=== PATIENT | male | born 1945 | race American Indian/Alaskan Native ===

== ENCOUNTER 2020-04-14 16:06 | Emergency (ER) | payer MEDICARE ==
--- NOTE | 2020-04-14 19:49 | Emergency Department Report ---
Blank Doc - Documentation Documentation: 74-year-old male that presents with left upper arm pain and is concerned about DVT. This initial assessment/diagnostic orders/clinical plan/treatment(s) is/are subject to change based on patient's health status, clinical progression and re- assessment by fellow clinical providers in the ED. Further treatment and workup at subsequent clinical providers discretion. Patient/guardians urged not to elope from the ED as their condition may be serious if not clinically assessed and managed. Initial orders include: 1- Patient sent to MAIN ED for further evaluation and treatment 2- US doppler
[2020-04-14 19:51] VITALS: BP 139/68
--- NOTE | 2020-04-14 21:49 | Emergency Department Report ---
HPI - General Chief Complaint: Extremity Problem,Nontraumatic Time Seen by Provider: 04/14/20 19:48 - HPI HPI: This is a 74-year-old male who presents to the emergency department with small bumps to the left upper arm that have developed over the past 2 to 3 days. He feels like it is growing in size and it is firm to touch. Most of the time he does not have any discomfort to this area except for when he flexes his bicep or moves his arm in a certain way. He has not taken anything for his symptoms prior to presentation. He has a past medical history of arthritis, coronary artery disease with [place], hypertension. He denies any restriction to range of motion to the left upper extremity. He denies any swelling to the arm itself. ED Past Medical Hx - Past Medical History Previous Medical History?: Yes Hx Hypertension: Yes Hx Heart Attack/AMI: Yes Hx Arthritis: Yes - Surgical History Past Surgical History?: Yes Hx Coronary Stent: Yes Additional Surgical History: neck surgery 2001. back surgery 2001 - Social History Smoking Status: Never Smoker Substance Use Type: None - Medications Home Medications: Home Medications Medication Instructions Recorded Confirmed Last Taken Type Methadone [Dolophine] 5 mg PO Q8HR PRN 08/15/13 09/20/13 09/20/13 History 5 mg Omeprazole [PriLOSEC] 20 mg PO QDAY 08/15/13 09/20/13 09/20/13 History 20 mg Pregabalin [Lyrica] 100 mg PO BID 08/15/13 09/20/13 09/20/13 History 100 mg guaiFENesin 400 mg PO TID PRN 08/15/13 09/20/13 Unknown History oxyCODONE [roxiCODONE] 5 mg PO TID 08/15/13 09/20/13 09/19/13 History 5 mg Aspirin [Aspirin BABY CHEW TAB] 81 mg PO DAILY 09/11/13 09/20/13 09/20/13 History 81 mg Atorvastatin [Lipitor] 40 mg PO DAILY 09/11/13 09/20/13 09/20/13 History 40 mg Lisinopril [Zestril] 2.5 mg PO DAILY 09/11/13 09/20/13 09/20/13 History Metoprolol [Lopressor TAB] 12.5 mg PO BID 0109/20/13 09/20/13 History 25 mg Nitroglycerin [Nitrostat] 0.4 mg SL Q5M 09/20/13 09/20/13 09/20/13 21:00 History 1 dose Ticagrelor [Brilinta] 90 mg PO BID 09/20/13 09/20/13 09/20/13 History ED Review of Systems ROS: Stated complaint: LEFT ARM PAIN Other details as noted in HPI Comment: All other systems reviewed and negative Constitutional: denies: chills, fever Respiratory: denies: shortness of breath Cardiovascular: denies: chest pain Skin: lesions. denies: change in color, pruritus Neurological: denies: numbness, paresthesias Physical Exam - Physical Exam Vital Signs: Vital Signs 04/14/20 19:48 Temperature 98 F Pulse Rate 74 Respiratory 20 Rate Blood Pressure 139/68 O2 Sat by Pulse 99 Oximetry Physical Exam: GENERAL: The patient is well-developed well-nourished. HENT: Normocephalic. Atraumatic. Patient has moist mucous membranes. EYES: Extraocular motions are intact. NECK: Supple. Trachea is midline. CHEST/LUNGS: Clear to auscultation. There is no respiratory distress noted. HEART/CARDIOVASCULAR: Regular. There is no tachycardia. ABDOMEN: There is no abdominal distention. SKIN: Skin is warm and dry. Patient has some areas of firm, ropey lesions to the left upper arm to the mid bicep and mid tricep. There is no overlying skin color change. NEURO: The patient is awake, alert, and oriented. The patient is cooperative. The patient has no focal neurologic deficits. Normal speech. MUSCULOSKELETAL: There is no tenderness to palpation to the affected left upper extremity. Radial pulse +2/4 and capillary refill less than 2 seconds to the distal left upper extremity. ED Course Vital Signs 04/14/20 19:48 Temperature 98 F Pulse Rate 74 Respiratory 20 Rate Blood Pressure 139/68 O2 Sat by Pulse 99 Oximetry ED Medical Decision Making - Medical Decision Making This patient presents with a 2 to 3-day history of some "bumps" to the left upper extremity. It is not tender to palpation. It feels firm and ropey, similar to a superficial thrombophlebitis or calcified varicosities. There is no overlying skin color change. He has full range of motion of the left upper extremity and is neurovascularly intact. His vital signs have been reassuring including being afebrile. The patient refused a humerus x-ray. I am unable to get venous Doppler ultrasound at this time, but the patient has been given an order to have this done in the morning. If positive for a DVT the patient will be re-directed to the emergency department. If negative, he has been instructed to follow-up with his primary care physician or a caramel candy maker helper. He does not appear to have any emergent medical condition or require admission at this time. Critical Care Time: No Critical care attestation.: If time is entered above; I have spent that time in minutes in the direct care of this critically ill patient, excluding procedure time. ED Disposition Clinical Impression: Skin lesion of left arm Disposition: DC-01 TO HOME OR SELFCARE Is pt being admited?: No Condition: Stable Additional Instructions: Please call the number on your discharge paperwork to schedule your outpatient venous Doppler ultrasound of the left arm. If the test is positive for a blood clot you will be redirected to the emergency department. If negative, please follow-up with your primary care physician or a caramel candy maker helper. Return to the emergency department with any worsening of your symptoms or with any acute distress. Referrals: PRIMARY MD NELLY [Primary Care Provider] - 2-3 Days Time of Disposition: 22:07
== END 2020-04-14 22:45 | disposition home or self-care (01) ==
LOC: ED 16:06
DX: M79.602 Pain in left arm (principal); I25.2 Old myocardial infarction; I10 Essential (primary) hypertension; M19.91 Primary osteoarthritis, unspecified site; Z98.890 Other specified postprocedural states; Z79.899 Other long term (current) drug therapy
CPT/HCPCS: 99282

== ENCOUNTER 2020-04-15 12:38 | Outpatient (CLI) | payer MEDICARE ==
--- NOTE | 2020-04-15 15:16 | Vascular Lab Report ---
LEFT UPPER EXTREMITY VENOUS DOPPLER ULTRASOUND HISTORY: Left arm pain, lesion COMPARISON: None. TECHNIQUE: Grayscale, color and spectral Doppler imaging of the venous system of the left upper extre mity was performed. FINDINGS: Internal Jugular Vein: Normal grayscale appearance and flow. Subclavian Vein: Normal grayscale appearance and flow. Axillary Vein: Normal venous flow, compressibility and augmentation. Brachial vein: Normal venous flow, compressibility and augmentation. Radial vein: Normal venous flow, compressibility and augmentation. Ulnar vein: Normal venous flow, compressibility and augmentation. Additional Findings: 0.6 x 0.2 cm ovoid lesion is identified near the left antecubital fossa consiste nt with a small lymph node. IMPRESSION: 1. No sonographic evidence of deep venous thrombosis in the left upper extremity. Signer Name: Serafin Goncalves Jr, MD Signed: 04/15/2020 3:11 PM Workstation Name: [id number]
== END 2020-04-15 12:39 | disposition home or self-care (01) ==
LOC: VAS 12:38
PROVIDERS: ATTEND Emergency Medicine
DX: M79.662 Pain in left lower leg (principal)

== ENCOUNTER 2020-12-08 18:22 | Observation (INO) | payer MEDICARE ==
--- NOTE | 2020-12-08 21:32 | Emergency Department Report ---
ED Chest Pain HPI - General Chief Complaint: Chest Pain Stated Complaint: CHEST PAIN Time Seen by Provider: 12/08/20 21:13 Source: patient Mode of arrival: Ambulatory Limitations: No Limitations - History of Present Illness Initial Comments: This is a 74-year-old -[place] male presents to the emergency department with complaint of an episode of dizziness/lightheadedness, and an episode of left-sided chest pain. The patient says that 2 days ago he was shopping at [employer] when suddenly he felt dizzy as if he was going to pass out. He says that it also occurred when he was getting up from sitting down or exerting himself. Earlier today the patient says that he reached for something and suddenly had sharp left-sided chest pains. It lasted for about an hour or so until he took a sublingual nitroglycerin. Now, at the time of my examination, the patient denies any symptoms or complaints. He denies any fever, shortness of breath, lower extremity swelling, nausea, vomiting, back pain or diaphoresis. He is a tobacco smoker but denies any illicit drug use. The patient has a past medical history of hypertension and coronary artery disease with previous NM and coronary stent in place. His manager dental is Dr. Lang. No recent travel or sick contacts at home. - Related Data Home Medications Medication Instructions Recorded Confirmed Last Taken Methadone [Dolophine] 5 mg PO Q8HR PRN 08/15/13 09/20/13 09/20/13 5 mg Omeprazole [PriLOSEC] 20 mg PO QDAY 08/15/13 09/20/13 09/20/13 20 mg Pregabalin [Lyrica] 100 mg PO BID 08/15/13 09/20/13 09/20/13 100 mg guaiFENesin 400 mg PO TID PRN 08/15/13 09/20/13 Unknown oxyCODONE [roxiCODONE] 5 mg PO TID 08/15/13 09/20/13 09/19/13 5 mg Aspirin [Aspirin BABY CHEW TAB] 81 mg PO DAILY 09/11/13 09/20/13 09/20/13 81 mg Atorvastatin [Lipitor] 40 mg PO DAILY 09/11/13 09/20/13 09/20/13 40 mg Lisinopril [Zestril] 2.5 mg PO DAILY 09/11/13 09/20/13 09/20/13 Metoprolol [Lopressor TAB] 12.5 mg PO BID 09/11/13 09/20/13 09/20/13 25 mg Nitroglycerin [Nitrostat] 0.4 mg SL Q5M 09/20/13 09/20/13 09/20/13 21:00 1 dose Ticagrelor [Brilinta] 90 mg PO BID 09/20/13 09/20/13 09/20/13 Allergies Allergy/AdvReac Type Severity Reaction Status Date / Time No Known Allergies Allergy Verified 12/08/20 18:37 Heart Score - HEART Score History: Slightly suspicious EKG: Non-specific Age: > 65 Risk factors: > 3 risk factors or hx of atherosclerotic disease Troponin: < normal limit HEART Score: 5 - EKG Read Time Time EKG Completed: 18:38 EKG Read Time: 18:42 - Critical Actions Critical Actions: 4-6 pts:12-16.6% risk of adverse cardiac event. Should be admitted ED Review of Systems ROS: Stated complaint: CHEST PAIN Other details as noted in HPI Comment: All other systems reviewed and negative Constitutional: denies: chills, fever Eyes: denies: eye pain, vision change ENT: denies: ear pain, throat pain Respiratory: denies: cough, shortness of breath Cardiovascular: chest pain. denies: palpitations Gastrointestinal: denies: abdominal pain, vomiting Genitourinary: denies: dysuria, discharge Musculoskeletal: denies: back pain, arthralgia Skin: denies: rash, lesions Neurological: other (dizzy/lighthead). denies: headache ED Past Medical Hx - Past Medical History Hx Hypertension: Yes Hx Heart Attack/AMI: Yes Hx Arthritis: Yes - Surgical History Hx Coronary Stent: Yes Additional Surgical History: neck surgery 2001. back surgery 2001 - Social History Smoking Status: Current Every Day Smoker Substance Use Type: None - Medications Home Medications: Home Medications Medication Instructions Recorded Confirmed Last Taken Type Methadone [Dolophine] 5 mg PO Q8HR PRN 08/15/13 09/20/13 09/20/13 History 5 mg Omeprazole [PriLOSEC] 20 mg PO QDAY 08/15/13 09/20/13 09/20/13 History 20 mg Pregabalin [Lyrica] 100 mg PO BID 08/15/13 09/20/13 09/20/13 History 100 mg guaiFENesin 400 mg PO TID PRN 08/15/13 09/20/13 Unknown History oxyCODONE [roxiCODONE] 5 mg PO TID 08/15/13 09/20/13 09/19/13 History 5 mg Aspirin [Aspirin BABY CHEW TAB] 81 mg PO DAILY 09/11/13 09/20/13 09/20/13 History 81 mg Atorvastatin [Lipitor] 40 mg PO DAILY 09/11/13 09/20/13 09/20/13 History 40 mg Lisinopril [Zestril] 2.5 mg PO DAILY 09/11/13 09/20/13 09/20/13 History Metoprolol [Lopressor TAB] 12.5 mg PO BID 09/11/13 09/20/13 09/20/13 History 25 mg Nitroglycerin [Nitrostat] 0.4 mg SL Q5M 09/20/13 09/20/13 09/20/13 21:00 History 1 dose Ticagrelor [Brilinta] 90 mg PO BID 09/20/13 09/20/13 09/20/13 History ED Physical Exam - General Limitations: No Limitations - Other Other exam information: GENERAL: The patient is well-developed well-nourished. HENT: Normocephalic. Atraumatic. Patient has moist mucous membranes. EYES: Extraocular motions are intact. NECK: Supple. Trachea is midline. CHEST/LUNGS: Clear to auscultation. There is no respiratory distress noted. There is no reproducible chest pain to palpation of the chest wall. No crepitus or deformity. HEART/CARDIOVASCULAR: Regular. There is no tachycardia. There is no murmur. ABDOMEN: Abdomen is soft, nontender. Patient has normal bowel sounds. There is no abdominal distention. SKIN: Skin is warm and dry. NEURO: The patient is awake, alert, and oriented. The patient is cooperative. The patient has no focal neurologic deficits. Normal speech. No facial asymmetry. Cranial nerves II through XII grossly intact. No pronator drift or dysmetria. MUSCULOSKELETAL: There is no tenderness or deformity. There is no limitation range of motion. ED Course Vital Signs 12/08/20 12/08/20 12/08/20 18:31 21:31 21:32 Temperature 98.2 F Pulse Rate 83 72 76 Respiratory 16 20 16 Rate Blood Pressure 135/67 130/64 130/64 O2 Sat by Pulse 100 100 100 Oximetry 12/08/20 12/08/20 12/08/20 21:34 21:36 21:38 Temperature Pulse Rate 72 74 78 Respiratory 22 14 16 Rate Blood Pressure 130/64 130/64 130/64 O2 Sat by Pulse 98 100 100 Oximetry 12/08/20 12/08/20 12/08/20 21:40 21:42 21:44 Temperature Pulse Rate 80 73 75 Respiratory 25 H 22 19 Rate Blood Pressure 130/64 130/64 130/64 O2 Sat by Pulse 99 98 100 Oximetry 12/08/20 12/08/20 12/08/20 21:46 21:47 21:48 Temperature Pulse Rate 82 72 66 Respiratory 18 20 18 Rate Blood Pressure 130/64 104/53 104/53 O2 Sat by Pulse 99 100 99 Oximetry 12/08/20 12/08/20 12/08/20 21:50 21:52 21:54 Temperature Pulse Rate 73 67 70 Respiratory 18 18 18 Rate Blood Pressure 104/53 104/53 104/53 O2 Sat by Pulse 99 99 98 Oximetry 12/08/20 12/08/20 12/08/20 21:56 21:58 22:00 Temperature Pulse Rate 71 76 68 Respiratory 16 16 15 Rate Blood Pressure 104/53 O2 Sat by Pulse 99 98 98 Oximetry 12/08/20 12/08/20 12/08/20 22:01 22:02 22:04 Temperature Pulse Rate 76 70 72 Respiratory 15 15 18 Rate Blood Pressure 109/50 109/50 109/50 O2 Sat by Pulse 98 98 99 Oximetry 12/08/20 12/08/20 12/08/20 22:06 22:08 22:10 Temperature Pulse Rate 67 69 68 Respiratory 16 17 15 Rate Blood Pressure 104/53 104/53 104/53 O2 Sat by Pulse 99 98 98 Oximetry 12/08/20 12/08/20 12/08/20 22:12 22:14 22:16 Temperature Pulse Rate 68 71 70 Respiratory 14 15 16 Rate Blood Pressure 104/53 104/53 121/53 O2 Sat by Pulse 98 98 98 Oximetry 12/08/20 12/08/20 12/08/20 22:17 22:18 22:20 Temperature Pulse Rate 69 68 67 Respiratory 13 14 13 Rate Blood Pressure 121/53 121/53 121/53 O2 Sat by Pulse 99 98 99 Oximetry 12/08/20 12/08/20 12/08/20 22:22 22:24 22:26 Temperature Pulse Rate 70 68 65 Respiratory 14 13 16 Rate Blood Pressure 121/53 121/53 121/53 O2 Sat by Pulse 98 98 96 Oximetry 12/08/20 12/08/20 12/08/20 22:28 22:30 22:31 Temperature Pulse Rate 67 69 64 Respiratory 15 14 16 Rate Blood Pressure 121/53 121/53 120/56 O2 Sat by Pulse 98 96 99 Oximetry 12/08/20 12/08/20 12/08/20 22:32 22:34 22:36 Temperature Pulse Rate 67 74 69 Respiratory 14 17 16 Rate Blood Pressure 120/56 120/56 120/56 O2 Sat by Pulse 99 99 99 Oximetry 12/08/20 12/08/20 12/08/20 22:38 22:40 22:42 Temperature Pulse Rate 68 68 65 Respiratory 16 17 16 Rate Blood Pressure 120/56 120/56 120/56 O2 Sat by Pulse 98 97 98 Oximetry 12/08/20 12/08/20 12/08/20 22:44 22:46 22:47 Temperature Pulse Rate 67 68 69 Respiratory 14 22 18 Rate Blood Pressure 120/56 109/45 109/45 O2 Sat by Pulse 98 99 98 Oximetry 12/08/20 12/08/20 12/08/20 22:48 22:50 22:51 Temperature Pulse Rate 68 66 66 Respiratory 16 18 17 Rate Blood Pressure 109/45 109/45 109/45 O2 Sat by Pulse 98 97 97 Oximetry 12/08/20 12/08/20 12/08/20 22:52 22:54 22:56 Temperature Pulse Rate 68 64 64 Respiratory 18 22 19 Rate Blood Pressure 109/45 109/45 109/45 O2 Sat by Pulse 98 98 98 Oximetry 12/08/20 12/08/20 12/08/20 22:58 23:00 23:02 Temperature Pulse Rate 66 65 68 Respiratory 28 H 24 17 Rate Blood Pressure 109/45 109/45 117/46 O2 Sat by Pulse 98 98 97 Oximetry 12/08/20 12/08/20 12/08/20 23:04 23:06 23:08 Temperature Pulse Rate 66 66 66 Respiratory 19 19 18 Rate Blood Pressure 117/46 117/46 109/45 O2 Sat by Pulse 98 97 97 Oximetry 12/08/20 12/08/20 12/08/20 23:10 23:12 23:14 Temperature Pulse Rate 65 63 61 Respiratory 15 15 15 Rate Blood Pressure 109/45 109/45 109/45 O2 Sat by Pulse 97 97 97 Oximetry 12/08/20 12/08/20 12/08/20 23:16 23:17 23:18 Temperature Pulse Rate 63 64 64 Respiratory 15 17 15 Rate Blood Pressure 128/47 128/47 128/47 O2 Sat by Pulse 98 97 97 Oximetry 12/08/20 12/08/20 12/08/20 23:20 23:22 23:24 Temperature Pulse Rate 63 64 62 Respiratory 15 16 15 Rate Blood Pressure 128/47 128/47 128/47 O2 Sat by Pulse 97 97 97 Oximetry 12/08/20 12/08/20 12/08/20 23:26 23:28 23:30 Temperature Pulse Rate 61 63 64 Respiratory 15 15 16 Rate Blood Pressure 128/47 128/47 128/47 O2 Sat by Pulse 97 97 97 Oximetry 12/08/20 12/08/20 12/08/20 23:32 23:34 23:36 Temperature Pulse Rate 60 62 61 Respiratory 15 15 15 Rate Blood Pressure 107/42 107/42 107/42 O2 Sat by Pulse 97 97 97 Oximetry FRANSICO score - Fransico Score Age > 65: (1) Yes Aspirin use within the Past 7 Days: (0) No 3 or more CAD Risk Factors: (1) Yes 2 or more Angina events in past 24 hrs: (1) Yes Known CAD with more than 50% Stenosis: (1) Yes Elevated Cardiac Markers: (0) No ST Deviation Greater than 0.5mm: (0) No FRANSICO Score: 4 ED Medical Decision Making - Lab Data Result diagrams: 12/08/20 21:31 12/08/20 23:01 - EKG Data -: EKG Interpreted by Me EKG shows normal: sinus rhythm, axis, intervals, QRS complexes (Q waves to the septal and anterior leads, LVH), ST-T waves Rate: normal - EKG Data When compared to previous EKG there are: previous EKG unavailable ("Unable to cache image") Interpretation: other (Sinus rhythm at 81 bpm, normal axis, normal intervals, Q waves to the anteroseptal leads, LVH. No ST elevation NM.) - Radiology Data Radiology results: image reviewed interpreted by me: Chest x-ray shows hyperinflation of the lungs. No obvious pneumonia, pleural effusions or pneumothorax. - Medical Decision Making This patient presents with some nonspecific dizziness/lightheadedness, and then the next day had left-sided chest pains. EKG does not have any morphology consistent with ST elevation myocardial infarction. Chest x-ray appears more consistent with COPD and does not show any obvious pneumonia, pleural effusions or any pneumothorax. Labs have been mostly unremarkable thus far including CBC, metabolic panel, negative troponin and a negative D-dimer. However the patient has a moderate heart and FRANSICO score. For this reason he will be admitted to the hospital for further evaluation and treatment and was accepted for admission by the hospitalist, Dr. Lee. Critical Care Time: No Critical care attestation.: If time is entered above; I have spent that time in minutes in the direct care of this critically ill patient, excluding procedure time. ED Disposition Clinical Impression: Acute chest pain, History of coronary artery disease, Tobacco use, Chest pain, rule out acute myocardial infarction Disposition: 09 OP ADMIT IP TO THIS HOSP Is pt being admited?: Yes Condition: Fair Time of Disposition: 22:49
[2020-12-08 21:44] LABS: Basophils # (Auto) 0.1 K/mm3 (0.0-0.1); Basophils % (Auto) 1.2 % (0.0-1.8); Eosinophils # (Auto) 0.3 K/mm3 (0.0-0.4); Eosinophils % (Auto) 7.5 % (0.0-4.3); Hematocrit 45.5 % (35.5-45.6); Hemoglobin 15.4 gm/dl (11.8-15.2); Lymphocytes % (Auto) 43.9 % (13.4-35.0); Mean Corpuscular HGB Conc 34 % (32-34); Mean Corpuscular Volume 92 fl (84-94); Monocytes # (Auto) 0.4 K/mm3 (0.0-0.8); Monocytes % (Auto) 8.9 % (0.0-7.3); Platelet Count 201 K/mm3 (140-440); Red Blood Count 4.94 M/mm3 (3.65-5.03); Red Cell Distribution Width 14.7 % (13.2-15.2)
[2020-12-08 21:53] LABS: INR 0.92 (0.87-1.13)
--- NOTE | 2020-12-08 21:59 | XRay Report ---
CHEST 1 VIEW 12/08/2020 9:27 PM INDICATION / CLINICAL INFORMATION: CP. COMPARISON: None available. FINDINGS: SUPPORT DEVICES: None. HEART / MEDIASTINUM: No significant abnormality. LUNGS / PLEURA: Bilateral chronic appearing interstitial changes with pulmonary hyperexpansion and ap ical predominant emphysema. No pneumothorax. ADDITIONAL FINDINGS: No significant additional findings. IMPRESSION: 1. Features compatible with COPD. No acute cardiopulmonary abnormality. Signer Name: Froilan Torres MD Signed: 12/08/2020 9:55 PM Workstation Name: [id number]
[2020-12-08 22:08] LABS: Alanine Aminotransferase 10 units/L (7-56); Albumin 3.9 g/dL (3.9-5); BUN/Creatinine Ratio 11; Blood Urea Nitrogen 13 mg/dL (9-20); Calcium 9.3 mg/dL (8.4-10.2); Hemolysis Index 33
[2020-12-08] MEDS ORDERED: ACETAMINOPHEN 325 MG TAB PO PRN ×2 (22:52)
[2020-12-08] MEDS ORDERED: traMADol 50 MG TAB PO PRN (22:52)
[2020-12-08] MEDS ORDERED: MAGNESIUM HYDROXIDE (MOM) ORAL LIQD UDC PO PRN (22:52)
[2020-12-08] MEDS ORDERED: NITROGLYCERIN 0.4 MG TAB SUBL SL PRN (22:52)
[2020-12-08] MEDS ORDERED: ONDANSETRON 4 MG/2 ML INJ IV PRN (22:52)
[2020-12-08] MEDS ORDERED: MORPHINE 2 MG/1 ML INJ IV PRN (22:52)
--- NOTE | 2020-12-08 23:02 | History and Physical Report ---
History of Present Illness Date of examination: 12/08/20 Date of admission: 12/08/2020 Chief complaint: Chest Pain History of present illness: 44-year-old -[place] male with known history of coronary artery disease and hypertension presenting to the emergency room today complaining of chest pain and lightheadedness. Lightheadedness was said to have started about 2 days ago when he suddenly felt dizzy when bending down. He suddenly started having left-sided chest pain today of minimal exertion and also felt lightheaded. Symptoms were said to have lasted for about an hour after which he took some sublingual nitroglycerin. There is no radiation of his chest pain, he denies any headache, no nausea vomiting, no fever or chills, no diaphoresis. Patient indicates that he has been compliant with his medications and denies any illicit drug use. However he continues to smoke tobacco on a daily basis. Patient follows up with Dr. Lang but states that he missed his recent appointment. Work-up in the emergency room today including EKG, chest x-ray and troponin were unremarkable. Patient is being admitted for chest pain evaluation. Past History Past Medical History: arthritis, CAD, hypertension, hyperlipidemia Past Surgical History: Other (Neck and Back pain in 2001) Social history: smoking (Current daily smoker) Family history: no significant family history Medications and Allergies Allergies Allergy/AdvReac Type Severity Reaction Status Date / Time No Known Allergies Allergy Verified 12/08/20 18:37 Home Medications Medication Instructions Recorded Confirmed Last Taken Type Methadone [Dolophine] 5 mg PO Q8HR PRN 08/15/13 09/20/13 09/20/13 History 5 mg Omeprazole [PriLOSEC] 20 mg PO QDAY 08/15/13 09/20/13 09/20/13 History 20 mg Pregabalin [Lyrica] 100 mg PO BID 08/15/13 09/20/13 09/20/13 History 100 mg guaiFENesin 400 mg PO TID PRN 08/15/13 09/20/13 Unknown History oxyCODONE [roxiCODONE] 5 mg PO TID 08/15/13 09/20/13 09/19/13 History 5 mg Aspirin [Aspirin BABY CHEW TAB] 81 mg PO DAILY 09/11/13 09/20/13 09/20/13 History 81 mg Atorvastatin [Lipitor] 40 mg PO DAILY 09/11/13 09/20/13 09/20/13 History 40 mg Lisinopril [Zestril] 2.5 mg PO DAILY 09/11/13 09/20/13 09/20/13 History Metoprolol [Lopressor TAB] 12.5 mg PO BID 09/11/13 09/20/13 09/20/13 History 25 mg Nitroglycerin [Nitrostat] 0.4 mg SL Q5M 09/20/13 09/20/13 09/20/13 21:00 History 1 dose Ticagrelor [Brilinta] 90 mg PO BID 09/20/13 09/20/13 09/20/13 History Active Meds: Active Medications Acetaminophen (Acetaminophen 325 Mg Tab) 650 mg PO Q4H PRN PRN Reason: Pain MILD(1-3)/Fever >100.5/SANDOVAL Acetaminophen (Acetaminophen 325 Mg Tab) 650 mg PO Q6H PRN PRN Reason: Pain, Mild (1-3) Aspirin (Aspirin Ec 325 Mg Tab) 325 mg PO QDAY [facility] Heparin Sodium (Porcine) (Heparin 5,000 Unit/1 Ml Vial) 5,000 unit SUB-Q Q8HR B[facility] Magnesium Hydroxide (Magnesium Hydroxide (Mom) Oral Liqd Udc) 30 ml PO Q4H PRN PRN Reason: Constipation Morphine Sulfate (Morphine 4 Mg/1 Ml Inj) 2 mg IV Q5MIN PRN PRN Reason: Chest Pain Nitroglycerin (Nitroglycerin 0.4 Mg Tab Subl) 0.4 mg SL Q5M PRN PRN Reason: Chest Pain Ondansetron HCl (Ondansetron 4 Mg/2 Ml Inj) 4 mg IV Q8H PRN PRN Reason: Nausea And Vomiting Sodium Chloride (Sodium Chloride 0.9% 10 Ml Flush Syringe) 10 ml IV BID BULL Sodium Chloride (Sodium Chloride 0.9% 10 Ml Flush Syringe) 10 ml IV PRN PRN PRN Reason: LINE FLUSH Sodium Chloride (Sodium Chloride 0.9% 10 Ml Flush Syringe) 10 ml IV PRN PRN PRN Reason: LINE FLUSH Tramadol HCl (Tramadol 50 Mg Tab) 50 mg PO Q6H PRN PRN Reason: Pain, Moderate (4-6) Review of Systems Constitutional: no fever, no chills, no fatigue Ears, nose, mouth and throat: no nasal congestion, no sore throat Cardiovascular: chest pain, no palpitations Respiratory: no cough, no shortness of breath Gastrointestinal: no abdominal pain, no nausea, no vomiting, no diarrhea Genitourinary Male: no dysuria, no hematuria, no flank pain, no nocturia Musculoskeletal: no neck pain, no low back pain Integumentary: no rash, no pruritis Neurological: no headaches, no confusion Psychiatric: no anxiety, no depression Endocrine: no polyphagia, no polydipsia, no polyuria, no nocturia Exam - Constitutional Vitals: Temp Pulse Resp BP Pulse Ox 98.2 F 69 16 120/56 99 12/08/20 18:31 12/08/20 22:36 12/08/20 22:36 12/08/20 22:36 12/08/20 22:36 General appearance: Present: no acute distress, well-nourished - EENT Eyes: Present: PERRL, EOM intact. Absent: scleral icterus ENT: hearing intact, clear oral mucosa, dentition normal - Neck Neck: Present: supple, normal ROM - Respiratory Respiratory effort: normal Respiratory: bilateral: CTA - Cardiovascular Rhythm: regular Heart Sounds: Present: S1 & S2. Absent: gallop, systolic murmur, diastolic murmur, rub, click - Extremities Extremities: no ischemia, pulses intact, pulses symmetrical, No edema, Full ROM Peripheral Pulses: within normal limits - Abdominal General gastrointestinal: Present: soft, non-tender, non-distended, normal bowel sounds. Absent: mass - Integumentary Integumentary: Present: clear, warm, dry. Absent: rash - Musculoskeletal Musculoskeletal: strength equal bilaterally - Psychiatric Psychiatric: appropriate mood/affect, intact judgment & insight, memory intact, cooperative - Neurologic Neurologic: CNII-XII intact, no focal deficits, moves all extremities HEART Score - HEART Score History: Slightly suspicious EKG: Non-specific Age: > 65 Risk factors: > 3 risk factors or hx of atherosclerotic disease Troponin: Troponin T < 0.010 ng/mL (0.00-0.029) 12/08/20 21:31 Troponin: < normal limit HEART Score: 5 - Critical Actions Critical Actions: 4-6 pts:12-16.6% risk of adverse cardiac event. Should be admitted Results - Labs CBC & Chem 7: 12/08/20 21:31 12/08/20 23:01 Labs: Abnormal lab results 12/08/20 12/08/20 Range/Units 21:31 21:31 Hgb 15.4 H (11.8-15.2) gm/dl Lymph % (Auto) 43.9 H (13.4-35.0) % Kendall % (Auto) 8.9 H (0.0-7.3) % Eos % (Auto) 7.5 H (0.0-4.3) % Seg Neutrophils % 38.5 L (40.0-70.0) % Sodium 136 L (137-145) mmol/L Glucose 106 H (75-100) mg/dL Assessment and Plan - Patient Problems (1) Chest pain, rule out acute myocardial infarction Current Visit: Yes Status: Acute Plan to address problem: Patient admitted and placed on telemetry. We will check serial cardiac enzymes. Patient started on daily aspirin, Sublingual nitroglycerin and IV morphine as needed for chest pain. Consult placed to cardiology for evaluation. (2) History of coronary artery disease Current Visit: Yes Status: Acute Plan to address problem: Patient has known history of [place] in the past with stent placement He follows up with Dr. Lang. Will await evaluation and recommendations from cardiology. (3) Tobacco use Current Visit: Yes Status: Acute Plan to address problem: Patient counseled on quitting tobacco abuse. We offer nicotine patch as needed. (4) Hypertension Current Visit: Yes Status: Acute Plan to address problem: Blood pressure stable. Will monitor vital signs closely. Continue on routine medications . (5) DVT prophylaxis Current Visit: Yes Status: Acute Plan to address problem: Patient placed on subcutaneous heparin. (6) Full code status Current Visit: Yes Status: Acute Plan to address problem: Patient is a full code.
[2020-12-09 00:14] LABS: BUN/Creatinine Ratio 12; Blood Urea Nitrogen 13 mg/dL (9-20); Calcium 9.2 mg/dL (8.4-10.2); Hemolysis Index 13
[2020-12-09] MEDS ORDERED: METHADONE 5 MG TAB PO PRN (00:37)
[2020-12-09 03:22] LABS: Hematocrit 41.5 % (35.5-45.6); Mean Corpuscular HGB Conc 34 % (32-34); Mean Corpuscular Volume 92 fl (84-94); Platelet Count 188 K/mm3 (140-440); Red Blood Count 4.51 M/mm3 (3.65-5.03); Red Cell Distribution Width 14.3 % (13.2-15.2)
[2020-12-09 03:24] LABS: BUN/Creatinine Ratio 11; Blood Urea Nitrogen 13 mg/dL (9-20); Calcium 9.1 mg/dL (8.4-10.2); Hemolysis Index 14
[2020-12-09 04:38] LABS: Chol/HDL Ratio 2.76 %
[2020-12-09] MEDS ORDERED: HEPARIN 5,000 UNIT/1 ML VIAL SUB-Q SCH (06:00)
[2020-12-09 07:42] LABS: Platelet Estimate Consistent w Auto; RBC Morphology Normal; Total Cells Counted 100
[2020-12-09] MEDS ORDERED: REGADENOSON 0.4 MG/5 ML INJ IV ONE ×2 (09:26→09:35)
[2020-12-09] MEDS ORDERED: METOPROLOL TARTRATE 25 MG TAB PO SCH (10:00)
[2020-12-09] MEDS ORDERED: PREGABALIN 50 MG CAP PO SCH (10:00)
[2020-12-09] MEDS ORDERED: PANTOPRAZOLE 20 MG TAB PO SCH (10:00)
[2020-12-09] MEDS ORDERED: ASPIRIN EC 81 MG TAB PO SCH (10:00)
[2020-12-09] MEDS ORDERED: LISINOPRIL 5 MG TAB PO SCH (10:00)
[2020-12-09] MEDS ORDERED: TICAGRELOR 90 MG TAB PO SCH (10:00)
--- NOTE | 2020-12-09 10:49 | Consultation ---
History of Present Illness Consult date: 12/09/20 Consult reason: chest pain History of present illness: The patient is a 74-year-old man who presented to the hospital with substernal chest pain. He reports his chest pain lasted only a few minutes, and was nonexertional, but made him present to the emergency room. He was evaluated in the emergency room and referred for admission. After a rule out [place] protocol, a Lexiscan thallium stress test has been recommended. He has a history of coronary artery disease, 8 years ago he underwent coronary stenting of the mid LAD occlusion following an acute anterior wall myocardial infarction. A 3.4 mm bare-metal stent was implanted successfully in the mid LAD. The report at that time was the circumflex being dominant, and free of significant disease. There was a diffusely diseased, nondominant right coronary artery recommended for medical management. Left ventricular ejection fraction was 40 to 45%. Since his myocardial infarction, he has followed regularly with his nail setter Dr. Lang in [place], and states that there have been no additional cardiac events or invasive cardiac procedures. He does not remember the last time he had a stress test. At this time, he is comfortable, chest pain-free. Serial ECGs showing normal sinus rhythm, no ST abnormalities, normal serial ECGs. Serial troponin levels x3 are all normal. Chest x-ray shows normal-sized cardiac silhouette, evidence of COPD but no interstitial edema on lung cowart. Past History Past Medical History: arthritis, CAD, COPD, hypertension, hyperlipidemia Past Surgical History: PTCA, Other (Neck and Back pain in 2001) Social history: smoking (Current daily smoker) Family history: no significant family history Medications and Allergies Allergies Allergy/AdvReac Type Severity Reaction Status Date / Time No Known Allergies Allergy Verified 12/08/20 18:37 Home Medications Medication Instructions Recorded Confirmed Last Taken Type Methadone [Dolophine] 5 mg PO Q8HR PRN 08/15/13 09/20/13 09/20/13 History 5 mg Omeprazole [PriLOSEC] 20 mg PO QDAY 08/15/13 09/20/13 09/20/13 History 20 mg Pregabalin [Lyrica] 100 mg PO BID 08/15/13 09/20/13 09/20/13 History 100 mg guaiFENesin 400 mg PO TID PRN 08/15/13 09/20/13 Unknown History oxyCODONE [roxiCODONE] 5 mg PO TID 08/15/13 09/20/13 09/19/13 History 5 mg Aspirin [Aspirin BABY CHEW TAB] 81 mg PO DAILY 09/11/13 09/20/13 09/20/13 History 81 mg Atorvastatin [Lipitor] 40 mg PO DAILY 09/11/13 09/20/13 09/20/13 History 40 mg Lisinopril [Zestril] 2.5 mg PO DAILY 09/11/13 09/20/13 09/20/13 History Metoprolol [Lopressor TAB] 12.5 mg PO BID 09/11/13 09/20/13 09/20/13 History 25 mg Nitroglycerin [Nitrostat] 0.4 mg SL Q5M 09/20/13 09/20/13 09/20/13 21:00 History 1 dose Ticagrelor [Brilinta] 90 mg PO BID 09/20/13 09/20/13 09/20/13 History Active Meds: Active Medications Acetaminophen (Acetaminophen 325 Mg Tab) 650 mg PO Q4H PRN PRN Reason: Pain MILD(1-3)/Fever >100.5/SANDOVAL Aspirin (Aspirin Ec 81 Mg Tab) 81 mg PO QDAY [facility] Atorvastatin Calcium (Atorvastatin 40 Mg Tab) 40 mg PO DAILY [facility] Lisinopril (Lisinopril 5 Mg Tab) 2.5 mg PO DAILY [facility] Magnesium Hydroxide (Magnesium Hydroxide (Mom) Oral Liqd Udc) 30 ml PO Q4H PRN PRN Reason: Constipation Methadone HCl (Methadone 5 Mg Tab) 5 mg PO Q8H PRN PRN Reason: PAIN (7-10) Metoprolol Tartrate (Metoprolol Tartrate 25 Mg Tab) 12.5 mg PO BID [facility] Morphine Sulfate (Morphine 2 Mg/1 Ml Inj) 2 mg IV Q5MIN PRN PRN Reason: Chest Pain Nitroglycerin (Nitroglycerin 0.4 Mg Tab Subl) 0.4 mg SL Q5M PRN PRN Reason: Chest Pain Ondansetron HCl (Ondansetron 4 Mg/2 Ml Inj) 4 mg IV Q8H PRN PRN Reason: Nausea And Vomiting Pantoprazole Sodium (Pantoprazole 20 Mg Tab) 20 mg PO QDAY [facility] Pregabalin (Pregabalin 50 Mg Cap) 100 mg PO BID BULL Sodium Chloride (Sodium Chloride 0.9% 10 Ml Flush Syringe) 10 ml IV BID BULL Sodium Chloride (Sodium Chloride 0.9% 10 Ml Flush Syringe) 10 ml IV PRN PRN PRN Reason: LINE FLUSH Ticagrelor (Ticagrelor 90 Mg Tab) 90 mg PO BID BULL Tramadol HCl (Tramadol 50 Mg Tab) 50 mg PO Q6H PRN PRN Reason: Pain, Moderate (4-6) Review of Systems Cardiovascular: chest pain, shortness of breath, no orthopnea, no palpitations, no rapid/irregular heart beat, no edema, no syncope, no lightheadedness Physical Examination Vital Signs Temp Pulse Resp BP Pulse Ox 98.2 F 83 16 135/67 100 12/08/20 18:31 12/08/20 18:31 12/08/20 18:31 12/08/20 18:31 12/08/20 18:31 General appearance: no acute distress HEENT: Positive: PERRL Neck: Positive: neck supple Cardiac: Positive: Reg Rate and Rhythm Lungs: Positive: Decreased Breath Sounds Neuro: Positive: Grossly Intact Abdomen: Positive: Soft Male genitourinary: Positive: deferred Skin: Positive: Clear Extremities: Absent: edema Results 12/09/20 02:37 12/09/20 02:37 Cardiac Enzymes 12/08/20 Range/Units 21:31 AST 16 (5-40) units/L Coagulation 12/08/20 Range/Units 21:31 PT 12.2 (12.2-14.9) Sec. INR 0.92 (0.87-1.13) Lipids 12/08/20 Range/Units 23:01 Triglycerides 112 (2-149) mg/dL Cholesterol 180 (50-199) mg/dL HDL Cholesterol 65 H (40-59) mg/dL Cholesterol/HDL Ratio 2.76 % CBC 12/08/20 12/09/20 Range/Units 21:31 02:37 WBC 4.6 4.3 L (4.5-11.0) K/mm3 RBC 4.94 4.51 (3.65-5.03) M/mm3 Hgb 15.4 H 14.0 (11.8-15.2) gm/dl Hct 45.5 41.5 (35.5-45.6) % Plt Count 201 188 (140-440) K/mm3 Lymph # (Auto) 2.0 (1.2-5.4) K/mm3 Jack # (Auto) 0.4 (0.0-0.8) K/mm3 Eos # (Auto) 0.3 (0.0-0.4) K/mm3 Baso # (Auto) 0.1 (0.0-0.1) K/mm3 Comprehensive Metabolic Panel 12/08/20 12/08/20 12/09/20 Range/Units 21:31 23:01 02:37 Sodium 136 L 139 141 (137-145) mmol/L Potassium 4.1 4.0 4.6 (3.6-5.0) mmol/L Chloride 101.1 104.8 105.2 (98-107) mmol/L Carbon Dioxide 25 25 27 (22-30) mmol/L BUN 13 13 13 (9-20) mg/dL Creatinine 1.2 1.1 1.2 (0.8-1.3) mg/dL Glucose 106 H 63 L 57 L (75-100) mg/dL Calcium 9.3 9.2 9.1 (8.4-10.2) mg/dL AST 16 (5-40) units/L ALT 10 (7-56) units/L Alkaline Phosphatase 107 (35-129) units/L Total Protein 6.9 (6.3-8.2) g/dL Albumin 3.9 (3.9-5) g/dL EKG interpretations - Telemetry EKG Rhythm: Sinus Rhythm Assessment and Plan - Patient Problems (1) Chest pain Current Visit: Yes Status: Acute Plan to address problem: Patients presents with chest pain, serial ECGs and serial cardiac enzymes are normal, we will proceed with thallium stress test for further chest pain assessment.
[2020-12-09 11:10] VITALS: BP 119/67
--- NOTE | 2020-12-09 12:43 | Discharge Summary ---
Providers - Providers Date of Admission: 12/08/20 22:50 Attending physician: NATO PEREZ MD 12/08/20 Consult to Cardiac Rehabilitation [CONS] Routine Reason For Exam: Phase I 12/08/20 22:53 Consult to Cardiology [CONS] Routine Consulting Provider: BRANDYN LANG Reason For Exam: CHEST PAIN Primary care physician: DIRECTOR OF RESERVATIONS Hospitalization Reason for admission: chest pain Condition: Fair Hospital course: 44-year-old -[place] male with known history of coronary artery disease and hypertension presenting to the emergency room today complaining of chest pain and lightheadedness. Lightheadedness was said to have started about 2 days ago when he suddenly felt dizzy when bending down. He suddenly started having left-sided chest pain today of minimal exertion and also felt lightheaded. Symptoms were said to have lasted for about an hour after which he took some sublingual nitroglycerin. There is no radiation of his chest pain, he denies any headache, no nausea vomiting, no fever or chills, no diaphoresis. Patient indicates that he has been compliant with his medications and denies any illicit drug use. However he continues to smoke tobacco on a daily basis. Patient follows up with Dr. Lang but states that he missed his recent appointment. Work-up in the emergency room today including EKG, chest x-ray and troponin were unremarkable. Patient is being admitted for chest pain evaluation. patient underwent stress test and this morning following Stress test he got upset and signed out AMA before the report. He tells me that he is hungry and despite food brought to him, he still signed out. (1) Chest pain, rule out acute myocardial infarction Current Visit: Yes Status: Acute Plan to address problem: Patient admitted and placed on telemetry. We will check serial cardiac enzymes. Patient started on daily aspirin, Sublingual nitroglycerin and IV morphine as needed for chest pain. Consult placed to cardiology for evaluation. (2) History of coronary artery disease Current Visit: Yes Status: Acute Plan to address problem: Patient has known history of [place] in the past with stent placement He follows up with Dr. Lang. Will await evaluation and recommendations from cardiology. (3) Tobacco use Current Visit: Yes Status: Acute Plan to address problem: Patient counseled on quitting tobacco abuse. We offer nicotine patch as needed. (4) Hypertension Current Visit: Yes Status: Acute Plan to address problem: Blood pressure stable. Will monitor vital signs closely. Continue on routine medications . Disposition: DC-07 LEFT AGAINST MED ADVICE Final Discharge Diagnosis (Prints w/discharge instructions): Chest pain POSSIBLE Costochondritis Time spent for discharge: 35 MINS Core Measure Documentation - Palliative Care Palliative Care/ Comfort Measures: Not Applicable - Core Measures Any of the following diagnoses?: none Exam - Physical Exam Narrative exam: VITAL SIGNS: Reviewed. GENERAL: The patient appears normally developed, Vital signs as documented. HEAD: No signs of head trauma. EYES: Pupils are equal. Extraocular motions intact. EARS: Hearing grossly intact. MOUTH: Oropharynx is normal. NECK: No adenopathy, no JVD. CHEST: Chest with clear breath sounds bilaterally. No wheezes, rales, or rhonchi. CARDIAC: Regular rate and rhythm. S1 and S2, without murmurs, gallops, or rubs. VASCULAR: No Edema. Peripheral pulses normal and equal in all extremities. ABDOMEN: Soft, non tender and non distended. No rebound or guarding, and no masses palpated. Bowel Sounds normal. MUSCULOSKELETAL: Good range of motion of all major joints. Extremities without clubbing, cyanosis or edema. NEUROLOGIC EXAM: Alert and oriented x 3 No focal sensory or strength deficits. Speech normal. Follows commands. PSYCHIATRIC: Mood normal. SKIN: detail exam as documented in skin assessment - Constitutional Vitals: Temp Pulse Resp BP Pulse Ox 97.5 F L 61 14 119/67 94 12/09/20 07:54 12/09/20 08:30 12/09/20 07:54 12/09/20 10:18 12/09/20 07:56 Plan Follow up with: PRIMARY MD NELLY [Primary Care Provider] - 7 Days Forms: AMA Form
--- NOTE | 2020-12-09 13:08 | Nuclear Medicine Report ---
APPROVED REPORT Exam: Nuclear Stress Test Patient Location: 4A-TELEMETRY Ht: 6 ft 0 in Wt: 114 lbs BSA: 1.68 m2 HR: 64 bpm BP: 126/67 mmHg BMI: 15.45 Rhythm: SINUS RHYTHM WITH MARKED SINUS ARRYTHMIA Stress Test Details Stress Test: Pharmacologic stress testing performed using 0.4 mg of regadenoson per 5 mL given IV over 10 seconds. Reason for pharmacologic stress test: physical limitation. HR Resting HR: 64 bpmMax Heart Rate (APMHR): 148 bpm Max HR Achieved: 83 bpmTarget HR (85% APMHR): 125 bpm % of APMHR: 56 Recovery HR: 78 bpm BP Resting BP: 125/67 mmHg Max BP: 123/59 mmHg Recovery BP: 113/61 mmHg ECG Resting ECG: Sinus Rhythm Stress ECG: Sinus Rhythm ST Change: None Arrhythmia: None Recovery ECG: Sinus Rhythm Recovery ST Change: None Recovery Arrhythmia: None Clinical Reason for Termination: Completed protocol Stress Symptoms: None Stress ECG Conclusion No chest pain and no ST changes with Lexiscan stress testing, myocardial perfusion images are pending for final test interpretation. NM EXAM: Myocardial Perfusion REST/STRESS Imaging Protocol: Rest Tc-99m/Stress Tc-99m 1 day Resting Data Rest SPECT myocardial perfusion imaging was performed in supine position 45 minutes following the intravenous injection of 10 mCi of Tc-99m Myoview. Time of rest injection: 0715 Pharmacologic Stress Pharmacologic stress test was performed by injecting Regadenoson 0.4 mg IV push followed by the intravenous injection of 28 mCi of Tc-99m Myoview. Time of stress injection: 1016 Gated Stress SPECT was performed 60 minutes after stress injection. The images were gated to evaluate regional wall motion and calculate left ventricular ejection fraction. Study Data TID = 1.09. Perfusion Nuclear Conclusion ECG Findings: negative for ischemia Clinical Findings: negative for ischemia Nuclear Findings: negative for ischemia Left Ventricular Function: normal Risk Study: low The rest and stress perfusion images are normal, there is normal left ventricular systolic function with ejection fraction 64%. Normal myocardial perfusion study. Conclusion No chest pain and no ST changes with Lexiscan stress testing, myocardial perfusion images are pending for final test interpretation.
--- NOTE | 2020-12-09 13:48 | Electrocardiograph Report ---
[facility] Test Date: 2020-12-08 Test Time: 18:38:32 Pat Name: JACKSON SCOTT Department: Room: A472 1 Gender: M Business Process Coordinator: : 1945 Requested By: CONNOR PHIPPS Order Number: [id number] Reading MD: Liana Viveros Measurements Intervals [place] Rate: 81 P: 89 [place]: 139 QRS: 83 QRSD: 55 T: 86 QT: 398 QTc: 464 Interpretive Statements Sinus rhythm Nonspecific ST abnormality No previous ECG available for comparison Electronically Signed On 12-09-2020 13:47:50 EDT by Liana Viveros
--- NOTE | 2020-12-12 09:28 | Electrocardiograph Report ---
[facility] Test Date: 2020-12-09 Test Time: 09:28:54 Pat Name: JACKSON SCOTT Department: Room: A472 1 Gender: M Wrapper Caser: RANDA : 1945 Requested By: KENNY BARRETO Order Number: [id number] Reading MD: Gabino Brush Measurements Intervals [place] Rate: 65 P: 86 NV: 149 QRS: 78 QRSD: 69 T: 80 QT: 454 QTc: 463 Interpretive Statements Sinus rhythm Atrial premature complex Compared to ECG 12/08/2020 18:38:32 Atrial premature complex(es) now present Atrial abnormality no longer present Left ventricular hypertrophy no longer present Q waves no longer present Electronically Signed On 12-12-2020 9:27:33 EDT by Gabino Brush
== END 2020-12-09 11:55 | disposition left against medical advice (07) ==
LOC: ED 18:22 → 4A 22:50
PROVIDERS: ADMIT Internal Medicine Geriatric Medicine; ATTEND Internal Medicine
DX: I25.10 Atherosclerotic heart disease of native coronary artery without angina pectoris (principal); I10 Essential (primary) hypertension; F17.200 Nicotine dependence, unspecified, uncomplicated; M19.90 Unspecified osteoarthritis, unspecified site; E78.5 Hyperlipidemia, unspecified; J44.9 Chronic obstructive pulmonary disease, unspecified; Z86.79 Personal history of other diseases of the circulatory system; Z98.890 Other specified postprocedural states; Z79.82 Long term (current) use of aspirin
CPT/HCPCS: 36415; 71045; 78452; 80048; 80053; 80061; 84484; 85025; 85379; 85610; 93005; 93017; 93306; 99285; A9502; G0378; J2785; 85007

== ENCOUNTER 2022-03-24 08:32 | Day surgery (SDC) | payer MEDICARE ==
[~2022-03-24 08:32] MED LIST: SODIUM CHLORIDE 0.9% 1000 ML 1,000 ML IV SCH
--- NOTE | 2022-03-24 10:02 | Anesthesia Consultation ---
Anesthesia Consult and Med Hx Date of service: 03/24/22 - Airway Anesthetic Teeth Evaluation: Dentures (upper and lower) ROM Head & Neck: Adequate Mental/Hyoid Distance: Adequate - Pre-Operative Health Status ASA Pre-Surgery Classification: ASA3 Proposed Anesthetic Plan: MAC - Pulmonary Hx Smoking: Yes (2 cigars x day) - Cardiovascular System Hx Hypertension: Yes Hx Coronary Artery Disease: Yes (no chest pain after stent) Hx Heart Attack/AMI: Yes Hx Percutaneous Transluminal Coronary Angioplasty (PTCA): Yes - Central Nervous System Hx Psychiatric Problems: No - Gastrointestinal Hx Gastroesophageal Reflux Disease: Yes - Other Systems Hx Alcohol Use: Yes (liquor daily) Hx Cancer: No Hx Obesity: No (weight loss)
[2022-03-24] MEDS ORDERED: propofoL 200 MG/20 ML VIAL IV ONE (10:03)
--- NOTE | 2022-03-24 10:03 | Anesthesia Day of Surgery ---
Anesthesia Day of Surgery - Day of Surgery Patient Examined: Yes Patient H&P Reviewed: Yes Patient is NPO: Yes
[2022-03-24] MEDS ORDERED: PHENYLEPHRINE/NS 1,000 MCG/10 ML SYRINGE (OR USE) IV ONE (10:31)
--- NOTE | 2022-03-24 10:37 | Short Stay Summary ---
Short Stay Documentation Date of service: 03/24/22 Narrative H&P: The patient presents for EGD and colonoscopy to evaluate weight loss. Hx LUQ pain, now resolved. - History Past Medical History: arthritis, CAD (hx cardiac stents) Past Surgical History: No surgical history Social history: smoking - Allergies and Medications Current Medications: Allergies No Known Allergies Allergy (Verified 12/08/20 18:37) Home Medications Medication Instructions Recorded Confirmed Last Taken Type Methadone [Dolophine] 5 mg PO Q8HR PRN 08/15/13 09/20/13 09/20/13 History 5 mg Omeprazole [PriLOSEC] 20 mg PO QDAY 08/15/13 09/20/13 09/20/13 History 20 mg Pregabalin [Lyrica] 100 mg PO BID 08/15/13 09/20/13 09/20/13 History 100 mg guaiFENesin 400 mg PO TID PRN 08/15/13 09/20/13 Unknown History oxyCODONE [roxiCODONE] 5 mg PO TID 08/15/13 09/20/13 09/19/13 History 5 mg Aspirin [Aspirin BABY CHEW TAB] 81 mg PO DAILY 09/11/13 09/20/13 09/20/13 History 81 mg Atorvastatin [Lipitor] 40 mg PO DAILY 09/11/13 09/20/13 09/20/13 History 40 mg Lisinopril [Zestril] 2.5 mg PO DAILY 09/11/13 09/20/13 09/20/13 History Metoprolol [Lopressor TAB] 12.5 mg PO BID 09/11/13 09/20/13 09/20/13 History 25 mg Nitroglycerin [Nitrostat] 0.4 mg SL Q5M 09/20/13 09/20/13 09/20/13 21:00 History 1 dose Ticagrelor [Brilinta] 90 mg PO BID 09/20/13 09/20/13 09/20/13 History Active Medications Sodium Chloride (Nacl 0.9% 1000 Ml) 1,000 mls @ 50 mls/hr IV DIRECT BULL Stop: 03/24/22 23:00 - Physical exam General appearance: no acute distress, cachectic Integumentary: no rash, no growths, no abnormal pigmentation HEENT: Atraumatic, PERRLA, EOMI, Mucous membr. moist/pink Lungs: Clear to auscultation, Normal air movement Breasts: deferred Heart: Regular rate, Normal S1, Normal S2, No murmurs Gastrointestinal: normoactive bowel sounds, no tenderness, no distended, no masses Male Genitourinary: deferred Rectal Exam: normal exam-external/orifice, no mass Extremities: no ischemia, pulses intact, pulses symmetrical, No edema, normal temperature, normal color, Full ROM Neurological: Normal gait, Normal speech, Strength at 5/5 X4 ext, Normal tone, Sensation intact, Cranial nerves 3-12 NL - Brief post op/procedure progress note Date of procedure: 03/24/22 Procedure: see dictations Estimated blood loss: none Pathology: none Condition: stable - Disposition Condition at discharge: Good Disposition: 01 HOME / SELF CARE / HOMELESS - Discharge Diagnoses (1) Weight loss Status: Acute (2) Abdominal pain Status: Acute Short Stay Discharge Plan Activity: other (no driving for 24 hours) Weight Bearing Status: Weight Bear as Tolerated Diet: regular Follow up with: MYA SILVA MD [Primary Care Provider] - 7 Days
--- NOTE | 2022-03-24 10:38 | Operative Report ---
Operative Report Operative Report: Date of procedure: 03/24/2022 Procedure: Esophagogastroduodenoscopy Preprocedure diagnosis: Weight loss and history of left upper quadrant pain. Pain has since resolved. Post procedure diagnosis: Normal study Endoscopist: Dr. Cotton Anesthesia: Monitored anesthesia care per anesthesia department Medications: Propofol per anesthesia Estimated blood loss: 0 After careful discussion of the nature and purpose of the procedure as well as details the technique risks benefits and alternatives consent was obtained. The patient was placed in the left lateral decubitus position and medicated per anesthesia. The tip of the [employer] EQ 570 video scope was passed per orum under direct vision into the esophagus and advanced into the stomach and descending duodenum. The descending duodenum the duodenal bulb and pylorus were symmetrical and normal. The scope was withdrawn into the stomach and the stomach then gently insufflated with air. The antrum was normal. The stomach was further insufflated and the scope was then retroflexed and partially withdrawn. The cardia, fundus, and body of the stomach were within normal limits and easily distensible.The scope was then withdrawn in the forward position. The esophagogastric junction was at 40 cm. The esophageal body was normal throughout. The procedure was was well tolerated and the patient was observed in recovery. Impressions: Normal-appearing upper digestive tract. Plan: Further evaluation with colonoscopy today. Electronically signed: Julian Cotton MD
--- NOTE | 2022-03-24 10:39 | Operative Report ---
Operative Report Operative Report: Date of procedure: 03/24/2022 Preprocedure diagnosis: Weight loss. Post procedure diagnosis: Normal study Procedure: Colonoscopy to the cecum Endoscopist: Dr. Cotton Anesthesia: Monitored anesthesia care per anesthesia department Estimated blood loss: 0 Medications: Monitored anesthesia care. See separate report by anesthesia for details. After careful discussion of the nature and purpose of the procedure as well as details of the technique risks benefits and alternatives the patient gave co nsent. Please see recent history and physical from the office. The patient was placed in the left lateral decubitus position and medicated per anesthesia. A rectal exam was performed sphincter tone was normal there were no masses palpable. The [employer] 570 scope was passed transanally and advanced under continuous direct vision without difficulty to the cecum. The colon was well prepared. Th e cecum was normal. The ascending colon was normal and on forward and retroflexed views. The transverse colon, descending colon, and sigmoid colon were normal. The rectum was normal on forward and retroflexed views. The procedure was well-tolerated overall and the patient was observed in recovery. Conclusions: Normal colonoscopy to the cecum. Plan: Repeat colonoscopy in 10 years, sooner if clinically indicated. Signed electronically: Julian Cotton M.D.
[2022-03-24 11:30] VITALS: BP 125/48
--- NOTE | 2022-03-24 13:15 | Post Anesthesia Evaluation ---
- Post Anesthesia Evaluation Patient Participated: Yes Airway Patent: Yes Stable Respiratory Function: Yes Nausea/Vomiting: No Temp > 96.8F: Yes Pain Manageable: Yes Adequeate Hydration: Yes Anesthesia Complications: No
== END 2022-03-24 12:20 | disposition home or self-care (01) ==
LOC: GIO 08:32
PROVIDERS: ATTEND Internal Medicine Gastroenterology
DX: R63.4 Abnormal weight loss (principal); R10.12 Left upper quadrant pain; I25.2 Old myocardial infarction; I25.10 Atherosclerotic heart disease of native coronary artery without angina pectoris; I10 Essential (primary) hypertension; G62.9 Polyneuropathy, unspecified; E78.00 Pure hypercholesterolemia, unspecified; K21.9 Gastro-esophageal reflux disease without esophagitis; F17.210 Nicotine dependence, cigarettes, uncomplicated; M19.90 Unspecified osteoarthritis, unspecified site; Z98.890 Other specified postprocedural states; Z79.899 Other long term (current) drug therapy; Z79.82 Long term (current) use of aspirin; Z86.718 Personal history of other venous thrombosis and embolism; Z72.89 Other problems related to lifestyle; Z80.8 Family history of malignant neoplasm of other organs or systems
CPT/HCPCS: 43235; 45378; J2370; J2704; J7030